=== PATIENT | female | born 1960 | race Caucasian/White ===

== ENCOUNTER 2019-03-16 18:15 | Observation (INO) | payer OTHER ==
[2019-03-16 18:59] LABS: URINE BLOOD (Dip) POC Negative (NEGATIVE); URINE KETONES (Dip) POC Negative (NEGATIVE); URINE LEUKOCYTE EST (Dip) POC Negative (NEGATIVE); URINE NITRITE (Dip) POC Negative (NEGATIVE); URINE TOTAL PROTEIN POC Negative (NEGATIVE)
[2019-03-16 19:03] LABS: ADD MAN DIFF? NO
[2019-03-16 19:06] LABS: WHITE BLOOD COUNT 8.5 10^3/ul (4.8-10.8)
[2019-03-16 19:06] LABS: BASOPHILS % 0.5 % (0.0-2.0); EOSINOPHILS # 0.2 10^3/ul (0.0-0.5); HEMATOCRIT 34.6 % (37.0-47.0); HEMOGLOBIN 11.3 g/dl (12.0-16.0); LYMPHOCYTES % 23.4 % (15.0-51.0); MEAN CORPUSCULAR HEMOGLOBIN 28.3 pg (29.0-33.0); MEAN CORPUSCULAR HGB CONC 32.7 g/dl (32.0-37.0); MEAN CORPUSCULAR VOLUME 86.5 fl (82.0-101.0); MEAN PLATELET VOLUME 9.6 fl (7.4-10.4); MONOCYTE # 0.7 10^3/ul (0.3-0.9); MONOCYTES % 8.2 % (0.0-11.0); NEUTROPHIL # 5.6 10^3/ul (1.6-7.5); NEUTROPHILS % 65.4 % (39.0-77.0); PLATELET COUNT 303 10^3/UL (140-415); RED CELL DISTRIBUTION WIDTH 13.9 % (11.5-14.5)
[2019-03-16] MEDS: FAMOTIDINE 20 MG INJ IV ×2 (19:12→23:20)
[2019-03-16] MEDS: KETOROLAC 15 MG INJ IV (19:12)
[2019-03-16 19:30] LABS: ALANINE AMINOTRANSFERASE 49 IU/L (13-69); ALBUMIN 3.9 g/dl (3.3-4.9); ALBUMIN/GLOBULIN RATIO 1.34; ALKALINE PHOSPHATASE 126 IU/L (42-121); ANION GAP 11 (5-13); ASPARTATE AMINO TRANSFERASE 31 IU/L (15-46); BILIRUBIN,INDIRECT 0.3 mg/dl (0-1.1); BILIRUBIN,TOTAL 0.3 mg/dl (0.2-1.3); BLOOD UREA NITROGEN 15 mg/dl (7-20); CALCIUM 9.2 mg/dl (8.4-10.2); CARBON DIOXIDE 20 mmol/L (21-31); CHLORIDE 109 mmol/L (97-110); CREATININE 0.64 mg/dl (0.44-1.00); Estimated GFR > 60 mL/min (>60); GLUCOSE 144 mg/dl (70-220); LIPASE 68 U/L (23-300); SODIUM 140 mmol/L (135-144); TOTAL PROTEIN 6.8 g/dl (6.1-8.1)
[2019-03-16 19:41] LABS: B-TYPE NATRIURETIC PEPTIDE 5940 PG/ML (0-125)
[2019-03-16 19:41] LABS: TROPONIN-I 0.019 ng/ml (0.000-0.120)
[2019-03-16] MEDS: FUROSEMIDE 40 MG INJ IV (21:50)
[2019-03-16] MEDS ORDERED: ONDANSETRON 4 MG INJ IV (23:00)
[2019-03-16] MEDS ORDERED: GLUCOSE GEL 15 GRAM TUBE PO ×2 (23:00)
[2019-03-16] MEDS ORDERED: GLUCAGON 1 MG INJ IM (23:00)
[2019-03-16] MEDS ORDERED: DEXTROSE 50% 50 ML SYRINGE IV ×2 (23:00)
[2019-03-16] MEDS ORDERED: morphine 2 MG INJ IV (23:00)
[2019-03-16] MEDS ORDERED: NACL 0.9% 3 ML SYG IV (23:00)
[2019-03-16] MEDS ORDERED: GLUCOSE GEL 15 GRAM TUBE BUCCAL (23:00)
[2019-03-16] MEDS ORDERED: DOCUSATE SODIUM 100 MG CAP PO (23:00)
[2019-03-16] MEDS: GEMFIBROZIL 600 MG TAB PO (23:20)
[2019-03-17 05:41] LABS: ADD MAN DIFF? NO
[2019-03-17 05:46] LABS: BASOPHILS % 0.5 % (0.0-2.0); EOSINOPHILS # 0.2 10^3/ul (0.0-0.5); EOSINOPHILS % 2.6 % (0.0-7.0); HEMATOCRIT 34.1 % (37.0-47.0); LYMPHOCYTES # 1.7 10^3/ul (0.8-2.9); LYMPHOCYTES % 20.7 % (15.0-51.0); MEAN CORPUSCULAR HEMOGLOBIN 28.3 pg (29.0-33.0); MEAN CORPUSCULAR HGB CONC 32.3 g/dl (32.0-37.0); MEAN CORPUSCULAR VOLUME 87.7 fl (82.0-101.0); MEAN PLATELET VOLUME 9.8 fl (7.4-10.4); MONOCYTE # 0.7 10^3/ul (0.3-0.9); MONOCYTES % 7.7 % (0.0-11.0); NEUTROPHIL # 5.7 10^3/ul (1.6-7.5); PLATELET COUNT 303 10^3/UL (140-415); RED BLOOD COUNT 3.89 10^6/ul (4.20-5.40); RED CELL DISTRIBUTION WIDTH 14.1 % (11.5-14.5)
[2019-03-17 05:46] LABS: WHITE BLOOD COUNT 8.4 10^3/ul (4.8-10.8)
[2019-03-17 06:06] LABS: CREATINE KINASE 39 IU/L (23-200)
[2019-03-17 06:09] LABS: D-DIMER 2175.13 ng/ml (<460)
[2019-03-17 06:16] LABS: ANION GAP 7 (5-13); BLOOD UREA NITROGEN 14 mg/dl (7-20); CALCIUM 9.3 mg/dl (8.4-10.2); CARBON DIOXIDE 26 mmol/L (21-31); CHLORIDE 107 mmol/L (97-110); CHOL/HDL RATIO 5.7 RATIO; CHOLESTEROL 139 mg/dl (100-200); CREATININE 0.67 mg/dl (0.44-1.00); Estimated GFR > 60 mL/min (>60); GLUCOSE 137 mg/dl (70-220); HDL CHOLESTEROL 24 mg/dl (37-92); LACTATE DEHYDROGENASE 367 IU/L (313-618); LDL CHOLESTEROL,CALCULATED 71 mg/dl; POTASSIUM 4.2 mmol/L (3.5-5.1); SODIUM 140 mmol/L (135-144); TRIGLYCERIDES 220 mg/dl (0-149)
[2019-03-17 06:19] LABS: CK-MB 0.79 ng/ml (0.0-2.4); TROPONIN-I 0.026 ng/ml (0.000-0.120)
[2019-03-17 06:37] LABS: THYROID STIMULATING HORMONE 0.918 MIU/L (0.465-4.680)
[2019-03-17 07:12] LABS: HEMOGLOBIN A1C 8.6 % (0-5.9)
[2019-03-17] MEDS: ACCU-CHEK XX ×4 (07:47→20:41)
[2019-03-17] MEDS: metFORMIN 500 MG TAB PO ×2 (07:53→17:25)
[2019-03-17 07:56] LABS: PHOSPHORUS 4.7 mg/dl (2.5-4.9)
[2019-03-17] MEDS: GEMFIBROZIL 600 MG TAB PO ×2 (08:36→20:38)
[2019-03-17] MEDS: FAMOTIDINE 20 MG INJ IV (08:36)
[2019-03-17] MEDS: ASPIRIN (EC) 81 MG TAB PO (08:36)
[2019-03-17] MEDS: BENAZEPRIL 5 MG TAB PO (08:37)
[2019-03-17] MEDS: glyBURIDE 5 MG TAB PO ×2 (08:37→20:41)
[2019-03-17 08:38] LABS: ERYTHROCYTE SEDIMENTATION RATE 13 mm/Hr (0-30)
[2019-03-17] MEDS: ENOXAPARIN 40 MG/0.4 ML SYG SC (08:47)
[2019-03-17] MEDS ORDERED: STEGLATRO 5 MG PO (09:00)
[2019-03-17 11:52] LABS: CREATINE KINASE 37 IU/L (23-200)
[2019-03-17 12:06] LABS: CK INDEX 1.5; CK-MB 0.55 ng/ml (0.0-2.4); TROPONIN-I 0.021 ng/ml (0.000-0.120)
[2019-03-17] MEDS: MAGNESIUM SULFATE 2 GM/50 ML 50 ML IVPB (18:13)
[2019-03-17] MEDS: FAMOTIDINE 20 MG TAB PO (18:17)
[2019-03-17] MEDS: METOPROLOL (XL) 25 MG TAB PO (20:38)
[2019-03-18] MEDS ORDERED: STEGLATRO 5 MG PO (09:00)
== END 2019-03-17 23:57 | disposition short-term general hospital (02) ==
LOC: 6WM 22:43 → E/R 18:15
DX: R07.9 Chest pain, unspecified (principal); R10.11 Right upper quadrant pain; R06.02 Shortness of breath; I10 Essential (primary) hypertension; E11.9 Type 2 diabetes mellitus without complications; E78.5 Hyperlipidemia, unspecified; E66.9 Obesity, unspecified; Z68.30 Body mass index [BMI] 30.0-30.9, adult; D50.9 Iron deficiency anemia, unspecified; Z79.82 Long term (current) use of aspirin; Z79.84 Long term (current) use of oral hypoglycemic drugs; Z85.72 Personal history of non-Hodgkin lymphomas
CPT/HCPCS: 36415; 71045; 74181; 76705; 78226; 80048; 80053; 80061; 81003; 82550; 82553; 82962; 83036; 83615; 83690; 83735; 83880; 84100; 84443; 84484; 85025; 85378; 85651; 93005; 93306; 96374; 96375; 99285-25; G0378